=== PATIENT | female | born 1995 | race Caucasian/White ===

== ENCOUNTER → 2017-08-02 | Outpatient (CLI) | payer OTHER ==
--- NOTE | 2017-08-02 11:04 | Diagnostic Imaging Report ---
PROCEDURE: MRI lumbar spine. TECHNIQUE: Multiplanar, multisequence MRI of the lumbar spine was performed without contrast. INDICATION: Back pain and radiculopathy. FINDINGS: The alignment of the lumbar spine is normal. Vertebral body heights well-maintained. There is no spondylolisthesis. There is some edema in the left pars interarticularis and to a lesser degree right. This is suspicious for spondylolysis. All of the lumbar discs are normal in height, signal intensity, and morphology. Conus medullaris seen at L1 is normal in appearance. There is no focal disc extrusion or high-grade spinal stenosis. Abdominal aorta is nonaneurysmal. Kidneys are unremarkable. IMPRESSION: Findings suspect for bilateral pars interarticularis fractures at L4 without spondylolisthesis. Otherwise unremarkable MRI lumbar spine Dictated by: Dictated on workstation # [id number]
== END ==
LOC: RAD 09:20
PROVIDERS: ATTEND Orthopaedic Surgery
DX: M54.16 Radiculopathy, lumbar region (principal)
CPT/HCPCS: 72148